=== PATIENT | female | born 1950 | race Caucasian/White ===

== ENCOUNTER 2018-02-17 15:53 | Inpatient (IN) | payer MEDICARE, OTHER ==
[~2018-02-17] VITALS: Ht 160 cm; Wt 111.6 kg
[~2018-02-17 15:53] MED LIST: ALLER-TEC10 MG PO; ASPIRIN81 MG PO; ATORVASTATIN CA40 MG PO; CITALOPRAM HBR20 MG PO; DILTIAZEM 24HR240 M1 PO; FISH OIL 1,2001 EACH PO; HYDROCHLOROTHIA25 MG PO; LANTUS SOL100 UNIT/1 SUB-Q; LOSARTAN POTAS100 MG PO; MELOXICAM15 MG PO; METFORMIN HCL1000 MG PO; MULTIVITAMINS1 EAC7 PO; NASACORT10.8 ML NAS; OMEPRAZOLE20 MG PO; VITAMIN D1000 UNIT PO
[2018-02-24] MEDS ORDERED: JANUVIA50 MG PO (11:27)
--- NOTE | 2018-02-26 07:42 | NUR ---
PT IS ALERT, ORIENTED AND SUPPORTED BY HER . SHE IS PREPARED, HOWEVER THIS SEEMS TO BE ONE MORE MEDICAL ISSUE THAT SHE HAS HAD TO DEAL WITH LATELY THAT SEEMS TO BE KEEPING THEM FROM DOING THINGS THEY WOULD LIKE TO BE DOING. EXTENDED A BLESSING, WILL FOLLOW NEEDED
--- NOTE | 2018-02-26 08:57 | NUR ---
02/26/18 0856 Cailin Breaux 0840 PT ARRIVED REACTIVE TO VERBAL STIMULI. RESP EVEN AND UNLABORED. O2 DECREASED TO 6L VIA MASK. 0845 PT WOKE TO VERBAL STIMULI AND DENIES PAIN AND NAUSEA. 0846 O2 MASK REMOVED, O2 SAT 98%. PT ENCOURAGED TO DEEP BREATH AND COUGH. PT HAS A COURSE NONPRODUCTIVE COUGH.
--- NOTE | 2018-02-26 10:10 | NUR ---
RCVD PT FROM PACU. PT TRANSFERS SELF TO BED, ADAN WELL. SCD'S IN PLACE. URINE DRAINING TO BEDSIDE DELANEY BAG. IV SITE WNL, LR TO PUMP TUBING ORDERED AT 125 ML/HR. OXYGEN IN PLACE AT 2 L BY NASAL CANULA. ORIENTED TO ROOM AND CALL LIGHT. PT ADAN WATER WELL, WILL ADVANCE DIET. POC DISCUSSED AND PT AGREEABLE.
--- NOTE | 2018-02-26 11:00 | NUR ---
PT RESTS IN BED. CLEAR LIQUID TRAY ORDERED. VSS.
--- NOTE | 2018-02-26 12:00 | NUR ---
ADAN DIABETIC CLEAR TRAY WELL, CRACKERS PROVIDED. BLOOD SUGAR ELEVATED AT 209, 3 UNITS REGULAR INSULIN SQ GIVEN, SEE EMAR. I'S AND O'S COMPLETED. PT STANDS AT BEDSIDE, ADAN WELL. CONT TO C/O RECTAL PRESSURE FROM VAG PACKING. MEDICATED FOR PAIN, SEE EMAR.
--- NOTE | 2018-02-26 12:55 | NUR ---
OXYGEN REPLACED, 2L NC. SATS DECREASED TO 88% WHILE SLEEPING. PULSE OX REMAINS IN PLACE.
--- NOTE | 2018-02-26 14:00 | NUR ---
PT IN HIGH FOWLERS POSITION SLEEPING. OXYGEN AND PULSE OX IN PLACE. DID NOT DISTURB AT THIS TIME.
--- NOTE | 2018-02-26 16:00 | NUR ---
VSS. NEW LITER LR STARTED, IV SITE WNL. ROOM AIR TRIAL. UP TO CHAIR. GOWN CHANGED. [facility].
--- NOTE | 2018-02-26 17:15 | NUR ---
BLOOD SUGAR REMAINS ELEVATED. 3 UNITS REGULAR INSULIN GIVEN PER SLIDING SCALE, SEE EMAR. REG DINNER AT BEDSIDE. REMAINS UP IN CHAIR.
--- NOTE | 2018-02-26 18:00 | NUR ---
PT ADAN REG DINNER WELL, TRAY CLEARED. I'S AND O'S COMPLETED. MEDICATED FOR PAIN. REMAINS UP IN CHAIR AT THIS TIME.
--- NOTE | 2018-02-26 19:00 | NUR ---
ASSIST PT BACK TO BED. PERICARE. ADAN AMBULATION WELL.
--- NOTE | 2018-02-26 20:23 | NUR ---
PT SEMI FOWLERS IN BED, ON PHONE, AT BEDSIDE. ASSESSMENT COMPLETE, POC REVIEWED, AGREEABLE. IV LR INFUSING WELL. DELANEY DRAINED FOR CLEAR YELLOW URINE. SCDS ON. SMALL VAG BLEEDING ON PAD. DENIES PAIN. VSS.
--- NOTE | 2018-02-26 21:11 | NUR ---
SCHEDULED SUBQ HEPARIN GIVEN, RLQ, ADAN WELL. BS 202, 3 UNITS INSULIN GIVEN LLQ PER MD ORDERS, VERIFIED BY JAYSON MCWILLIAMS. FRESH PERIPAD PLACED, SCANT BLEEDING, PERICARE COMPLETE. FRESH ICE WATER GIVEN. PT PLANS TO REST, AT BEDSIDE.
--- NOTE | 2018-02-26 23:51 | NUR ---
RESTING IN BED, PAIN RX GIVEN PER PT REQUEST FOR VAGINAL PAIN. NEW BAG LR STARTED INFUSING WELL 125ML/HR. DELANEY DRAINED FOR 200ML CLEAR YELLOW URINE. PILLOW PLACED UNDER LEGS FOR COMFORT. NEW PERIPAD PLACED, SCANT VAG BLEEDING. DENIES NEEDS AT THIS TIME.
--- NOTE | 2018-02-27 00:45 | NUR ---
PT AWAKE. SAO2 88%. 2LR O2 NC. SAO2 94% PT REPORTS FEELING BETTER, DENIES PAINFUL AT THIS TIME.
--- NOTE | 2018-02-27 02:00 | NUR ---
WAKES WHEN THIS RN ENTERS ROOM. 94% SAO2 ON 2 LR NC. DENIES PAIN OR NEEDS AT THIS TIME.
--- NOTE | 2018-02-27 03:49 | NUR ---
PT UP TO CHAIR TO REST, ADAN AMBULATING WELL. VAG BLEEDING SCANT. IV INFUSING WELL. DELANEY DRAINING YELLOW URINE TO BEDSIDE BAG. IN ROOM. DENIES NEED FOR PAIN RX. VSS.
--- NOTE | 2018-02-27 06:31 | NUR ---
PT UP IN CHAIR WATCHING TV, PLANS TO ORDER BREAKFAST SOON. DENIES NEED FOR PAIN RELIEF AND NO OTHER REQUESTS AT THIS TIME. DELANEY CATHETER DRAINED FOR 450ML CLEAR YELLOW URINE. 97% SAO2 ON RA.
--- NOTE | 2018-02-27 07:30 | NUR ---
MORNING ASSESSMENT. MEDICATED FOR RECTAL PRESSURE, SEE EMAR. BLOOD SUGAR TAKEN PRIOR TO REG BREAKFAST, 1 UNIT REGULAR GIVEN, SEE EMAR. PT TAKING ORAL WELL, IV SALINE LOCKED. POC DISCUSSED FOR DAY AND PT AGREEABLE.
[2018-02-27] MEDS ORDERED: DILTIAZEM 24HR180 M1 PO (07:50)
[2018-02-27] MEDS ORDERED: GABAPENTIN300 MG PO (07:51)
--- NOTE | 2018-02-27 08:30 | NUR ---
PHARMACIST INTO VISIT WITH PATIENT ABOUT HER MEDS.
--- NOTE | 2018-02-27 08:55 | NUR ---
MED REC COMPLETE WITH PATIENT INTERVIEW AND REFILL HISTORY
--- NOTE | 2018-02-27 09:00 | NUR ---
SCHED MEDS GIVEN, SEE EMAR. REG BREAKFAST ADAN WELL, TRAY CLEARED. VAG PACKING DC. DELANEY DC, TIP INTACT. PT UP TO BR BY SELF AND DOES OWN PERICARE AND ORAL CARE. BACK TO BED, PREPS TO NAP.
--- NOTE | 2018-02-27 11:00 | NUR ---
PT RESTS IN BED. WATER FILLED. DENIES PAIN OR NEEDS. ENC TO ATTEMPT VOID SOON.
--- NOTE | 2018-02-27 11:30 | NUR ---
SL DC, TIP INTACT AND SITE WNL. UP TO DRESS FOR DC.
--- NOTE | 2018-02-27 11:35 | NUR ---
STAN KELLY INTO EVALUATE PT.
--- NOTE | 2018-02-27 12:05 | NUR ---
DC HOME AMBULATORY. FOLLOW UP WITH STAN KELLY IN TWO WEEKS SCHED.
--- NOTE | 2018-02-27 12:26 | OR ---
[facility] [address], [place] [address] Signed DATE OF OPERATION: 02/26/2018 SURGEON: Fabian Bartlett MD Patient of Dr. Bartlett. PREOPERATIVE DIAGNOSIS: Rectocele. POSTOPERATIVE DIAGNOSIS: Rectocele. PROCEDURE: Posterior repair. GRAPHITE DISK ASSEMBLER: Dr. Negron. ANESTHESIA: General. ESTIMATED BLOOD LOSS: 100 mL. SPECIMEN: None. DRAINS: Ordonez to bladder. PACKING: Premarin infused gauze in vagina. FINDINGS: A previous hysterectomy with absent cervix and uterus. There was a well-healed and fairly well supported cuff with moderate hemorrhoids. There was a grade 4 rectocele bulging out pass the introitus. DESCRIPTION OF PROCEDURE: The patient was brought into the operating room, placed supine position. After adequate Electronically Signed By: FABIAN BARTLETT MD 02/27/18 1226 PATIENT NAME: LINDSEY DAWSON OPERATIVE REPORT DATE OF : 54 REPORT #: [id number] PHYSICIAN: FABIAN BARTLETT MD PCP: SALIMA HILL PAC REPORT IS CONFIDENTIAL AND NOT TO BE RELEASED WITHOUT AUTHORIZATION [facility] [address] [place] [id number] Signed general anesthesia was obtained, placed in a dorsal lithotomy position, prepped and draped in usual sterile fashion. Ordonez catheter was placed in the bladder. Digital rectal exam was done to identify the distal portion of the rectocele and a curved Cristian was placed on vaginal mucosa at the distal end of the rectocele in the midline. A triangular wedge of skin was removed from the perineum using a scalpel. The base of pyramid was at the introitus between two Allis clamps and the apex was half way between the vagina and rectum. The skin was removed using Metzenbaum scissors. The midline vaginal mucosa was then underlined and opened along the midline with Metzenbaum scissors. This was continued up to the previously placed curved Cristian clamp as the dissection was done. Allis clamps used to grasp each edge of the vaginal mucosa. Metzenbaum scissors and an open sponge were then used to separate the perirectal tissue from the vaginal mucosa laterally from the midline on each side. This was done to completely identify the rectocele. Horizontal mattress stitches of 0 chromic suture were then used to close the rectocele starting distally and moving towards the vaginal opening. Each bite was taken lateral to the rectocele to bring the thicker healthier tissue over the top of the thinned rectocele tissue. Care was taken to avoid the rectum. After these stitches were placed, digital rectal exam was done, and no stitches were noted in the rectum. The vaginal mucosa was then trimmed on either side and the vaginal mucosa closed along the midline using a running locking stitch of 2-0 Vicryl suture. After closing the vaginal mucosa about half way, FloSeal was inserted into the space between the vaginal mucosa and the rectum to help with any oozing. The vaginal mucosa then finished closing out to the introitus. The perineal body was then closed and reinforced using interrupted stitches of 0 Vicryl suture and then 2-0 Vicryl suture used to close the perineum using running subcutaneous stitch down to the apex of the triangle, and then subcuticularly from the apex back up to the introitus where this was tied off closing the perineum. The vagina was inspected. There was small amount of bleeding at the very apex, which was controlled with a mfeyfy-as-clejo stitch of 0 Vicryl suture. Entire area was examined, noted to have good hemostasis. The vagina was then packed with Premarin infused gauze. Ordonez was left in place. The patient went to recovery room in good condition. The sponge, needle, and instrument count correct at the end of the procedure. Fabian Bartlett MD MJB/[id number] /[id number] Electronically Signed By: FABIAN BARTLETT MD 02/27/18 1226 PATIENT NAME: LINDSEY DAWSNO OPERATIVE REPORT DATE OF : 54 REPORT #: [id number] PHYSICIAN: FABIAN BARTLETT MD PCP: SALIMA HILL REPORT IS CONFIDENTIAL AND NOT TO BE RELEASED WITHOUT AUTHORIZATION [address] [address] Signed cc: MD Salima Nye PA-C Copies: STEPHAN DIXON MD, AMANDA PAC ~ Electronically Signed By: FABIAN BARTLETT MD 02/27/18 1226 PATIENT NAME: LINDSEY DAWSON OPERATIVE REPORT DATE OF : 54 REPORT #: [id number] PHYSICIAN: FABIAN BARTLETT MD PCP: SALIMA HILL REPORT IS CONFIDENTIAL AND NOT TO BE RELEASED WITHOUT AUTHORIZATION
== END 2018-02-27 12:05 | disposition home or self-care (01) | DRG 748 ==
LOC: DSVR 02-26 05:40 → FBC 02-26 05:40 → MS 02-26 06:45 → FBC 02-26 10:10
PROVIDERS: ADMIT General Practice
PROC: 0JQC0ZZ Repair Pelvic Region Subcutaneous Tissue and Fascia, Open Approach (ICD-10-PCS; principal; 2018-02-26 06:45)
DX: N81.6 Rectocele (principal); K64.9 Unspecified hemorrhoids
CPT/HCPCS: J0461; J0690; J1100; J1644; J1815; J1885; J2250; J2405; J2704; J2765; J3010; J7120